=== PATIENT | female | born 1980 | race Caucasian/White ===

== ENCOUNTER 2017-01-02 11:32 | Emergency (ER) | payer SELFPAY ==
[2017-01-02 11:37] VITALS: BP 125/65; PULSE 85; TEMP 98.7; BMI 25.8
--- NOTE | 2017-01-02 12:04 | PDOC ---
History of Present Illness - General Chief Complaint: Sore Throat Stated Complaint: SORE THROAT Time Seen by Provider: 01/02/17 11:54 History Source: Patient Exam Limitations: No Limitations - History of Present Illness Initial Comments: 01/02/17 12:03 36 yr female with c/o sore throat for 4 days. Pt states 2 weeks ago had same symptoms took 4 days of amoxicillin. Past History - Past Medical History Allergies/Adverse Reactions: Allergies Allergy/AdvReac Type Severity Reaction Status Date / Time No Known Allergies Allergy Verified 01/02/17 11:37 Home Medications: Ambulatory Orders Penicillin V Potassium [Pen Vee K -] 500 mg PO BID #20 tablet 01/02/17 Other medical history: NONE - Reproductive History (#): 3 Para: 2 - Suicide/Smoking/Psychosocial Hx Smoking History: Never smoked Have you smoked in the past 12 months: No Hx Alcohol Use: No Drug/Substance Use Hx: No Substance Use Type: None *Physical Exam - Vital Signs Last Vital Signs Temp Pulse Resp BP Pulse Ox 98.7 F 85 20 125/65 98 01/02/17 11:34 01/02/17 11:34 01/02/17 11:34 01/02/17 11:34 01/02/17 11:34 - Physical Exam General Appearance: Yes: Nourished, Appropriately Dressed HEENT: positive: EOMI, SAWYER, Normal ENT Inspection, TMs Normal, Pharynx Normal, Pharyngeal Erythema, Tonsillar Erythema Neck: positive: Supple, Lymphadenopathy (L) Respiratory/Chest: positive: Lungs Clear, Normal Breath Sounds Medical Decision Making - Medical Decision Making 01/02/17 17:51 cc: sore throat and low grade fever will check rapid strep pt non toxic speaking clearly no evidence of [employer]ADER no drooling *DC/Admit/Observation/Transfer Diagnosis at time of Disposition: Strep pharyngitis - Discharge Dispostion Disposition: HOME Condition at time of disposition: Good - Prescriptions Prescriptions: Penicillin V Potassium [Pen Vee K -] 500 mg PO BID #20 tablet - Referrals Referrals: Fabian Sal MD [Primary Care Provider] - - Patient Instructions Additional Instructions: gargle with warm salt water 4-5 times a day take the medication as prescribed finish all the antibiotics take advil 600mg every 6hrs for pain or fever avoid close contacts, strep is spread through saliva
== END 2017-01-02 12:32 | disposition home or self-care (01) ==
LOC: JERFT 11:32
DX: J02.0 Streptococcal pharyngitis (principal)
CPT/HCPCS: 87070; 87077; 87430; 99281-25

== ENCOUNTER 2018-04-11 23:42 | Emergency (ER) | payer OTHER ==
[2018-04-12 00:01] VITALS: BP 125/78; PULSE 85; TEMP 98.6; BMI 28.2
--- NOTE | 2018-04-12 01:23 | PDOC ---
History of Present Illness - General Chief Complaint: Toothache Stated Complaint: TOOTHACHE Time Seen by Provider: 04/12/18 01:21 History Source: Patient Exam Limitations: No Limitations - History of Present Illness Initial Comments: 04/12/18 02:26 Best Contact: s PCP:None Pmhx:0 Pshx:0 Allergies:NKDA FH:0 Social Hx: Cigarettes/ 0 Alcohol/ 0 Drugs/0 LMP: 03/19/2017 37-year-old female presents to the ER complaining of a cracked left lower wisdom tooth 3 weeks ago. Patient states she was seen by her dentist on March 19 and was given amoxicillin 500 mg 1 tab by mouth 3 times a day. Patient states she took 2 days with antibiotics and felt nauseous therefore she stopped. Patient states she was taken Tylenol alternating with Motrin with some relief until last evening when the pain persists to 8/10 throbbing nonradiating intermittent discomfort which is exacerbated with cold fluids. Patient states she has an appointment for left lower wisdom extraction on May 04. Patient denies fever, chills, nausea/vomiting, facial pain/swelling, sore throat, difficulty swallowing. Past History - Past Medical History Allergies/Adverse Reactions: Allergies Allergy/AdvReac Type Severity Reaction Status Date / Time No Known Allergies Allergy Verified 04/12/18 01:27 Home Medications: Ambulatory Orders Penicillin V Potassium [Pen Vee K -] 500 mg PO BID #20 tablet 01/02/17 Clindamycin [Cleocin -] 300 mg PO TID #21 capsule 04/12/18 Hydrocodone/Acetaminophen [Vicodin 5-300 mg Tablet] 1 each PO TID #12 tablet MDD 4 04/12/18 COPD: No - Reproductive History (#): 3 Para: 2 - Suicide/Smoking/Psychosocial Hx Smoking History: Never smoked Have you smoked in the past 12 months: No Information on smoking cessation initiated: No Hx Alcohol Use: No Drug/Substance Use Hx: No Substance Use Type: None Review of Systems - Review of Systems Able to Perform ROS?: Yes Comments:: 04/12/18 02:25 CONSTITUTIONAL: Absent: fever, chills, diaphoresis, generalized weakness, malaise, loss of appetite HEENT: Absent: rhinorrhea, nasal congestion, throat pain, throat swelling, difficulty swallowing, mouth swelling, ear pain, eye pain, visual Changes Left lower wisdom toothache/cracked Is the patient limited Macedonian proficient: No *Physical Exam - Vital Signs Last Vital Signs Temp Pulse Resp BP Pulse Ox 98.6 F 85 20 125/78 97 04/11/18 23:53 04/11/18 23:53 04/11/18 23:53 04/11/18 23:53 04/11/18 23:53 - Physical Exam Comments: 04/12/18 02:25 GENERAL: Well developed, well nourished. Awake and alert. No acute distress. HEENT: Normocephalic, atraumatic. PERRLA, EOMI. No conjunctival pallor. Sclera are non- icteric. Moist mucous membranes. Oropharynx is clear. Left wisdom tooth pain on percussion +cracked tooth neg swelling Neg trismus Moderate Sedation - Procedure Monitoring Vital Signs: Procedure Monitoring Vital Signs Temperature 98.6 F 04/11/18 23:53 Pulse Rate 85 04/11/18 23:53 Respiratory Rate 20 04/11/18 23:53 Blood Pressure 125/78 04/11/18 23:53 O2 Sat by Pulse Oximetry (%) 97 04/11/18 23:53 *DC/Admit/Observation/Transfer Diagnosis at time of Disposition: Toothache - Discharge Dispostion Disposition: HOME Condition at time of disposition: Stable Decision to Admit order: No - Prescriptions Prescriptions: Clindamycin [Cleocin -] 300 mg PO TID #21 capsule Hydrocodone/Acetaminophen [Vicodin 5-300 mg Tablet] 1 each PO TID #12 tablet MDD 4 - Referrals Referrals: Sherry Salcedo [Primary Care Provider] - - Patient Instructions Printed Discharge Instructions: DI for Tooth Decay Additional Instructions: Follow up with the dentist [facility] [phone] [place]: [phone] Saturday through Saturday: 4 PM to 9 PM Saturday and Saturday 9 AM to 5 PM Tylenol alternating with Motrin as needed for mild pain Take antibiotics: Clindamycin as prescribed - Post Discharge Activity
== END 2018-04-12 01:34 | disposition home or self-care (01) ==
LOC: JER 23:42
DX: K08.89 Other specified disorders of teeth and supporting structures (principal)
CPT/HCPCS: 99282-25

== ENCOUNTER 2021-03-09 15:35 | Emergency (ER) | payer BC, OTHER ==
[2021-03-09 15:58] VITALS: BP 121/80; PULSE 90; TEMP 97.3; BMI 29.9
[2021-03-10 16:11] LABS: SARS-CoV-2 NAA Not Detected (Not Detected)
== END 2021-03-09 18:11 | disposition home or self-care (01) ==
LOC: JER 15:35
DX: B34.9 Viral infection, unspecified (principal)
CPT/HCPCS: 87804; 99283-25; C9803; U0003; U0005

== ENCOUNTER 2023-11-05 14:25 | Emergency (ER) | payer BC, OTHER ==
[2023-11-05 14:36] VITALS: BP 141/96; PULSE 73; RESP 18; TEMP 98.8; BMI 28.3
[2023-11-05] MEDS ORDERED: ACETAMINOPHEN INJECTION 100 ML ONE (15:42)
[2023-11-05] MEDS ORDERED: FAMOTIDINE 20 MG/50 ML IVPB 20 MG/50 ML MG IVPB ONE (15:43)
[2023-11-05] MEDS ORDERED: MAG HYDROX/AL HYDROX/SIMETH 30 ML UNIT-DOSE CUP ONE (15:43)
[2023-11-05] MEDS: FAMOTIDINE 20 MG/50 ML IVPB 20 MG/50 ML MG IVPB ONE (15:56)
[2023-11-05] MEDS: ACETAMINOPHEN 1000 MG/100 ML BAG IVPB ONE (15:56)
[2023-11-05] MEDS: LACTATED RINGERS SOLUTION 1000 ML INFUS.BAG IV ONE (15:57)
[2023-11-05] MEDS: MAG HYDROX/AL HYDROX/SIMETH 30 ML UNIT-DOSE CUP PO ONE (15:57)
[2023-11-05 16:00] LABS: BASO % 0.3 % (0-2.0); EOS % 1.6 % (0-4.5); HEMATOCRIT 36.4 % (32.4-45.2); HEMOGLOBIN 12.6 GM/dL (10.7-15.3); LYMPH % 18.1 % (8-40); MCH 33.5 pg (25.7-33.7); MCHC 34.7 g/dl (32.0-36.0); MEAN CELL VOLUME 96.7 fl (80-96); MEAN PLT VOLUME 8.5 fl (7.5-11.1); MONO % 5.2 % (3.8-10.2); NEUT % 74.8 % (42.8-82.8); PLATELET COUNT 283 10^3/uL (134-434); RBC 3.77 M/mm3 (3.60-5.2); RDW 13.1 % (11.6-15.6); WHITE BLOOD COUNT 7.9 K/mm3 (4.0-10.0)
[2023-11-05 16:44] LABS: POTASSIUM 4.1 mmol/L (3.5-5.1)
[2023-11-05 16:46] LABS: CALCIUM 9.1 mg/dL (8.5-10.1)
[2023-11-05 16:47] LABS: BLOOD UREA NITROGEN 12.9 mg/dL (7-18); MAGNESIUM 2.4 mg/dL (1.8-2.4)
[2023-11-05 16:50] LABS: CREATININE 0.8 mg/dL (0.55-1.3)
[2023-11-05 16:51] LABS: BILIRUBIN,TOTAL 0.4 mg/dL (0.2-1)
[2023-11-05 17:05] LABS: ACTIVATED PTT 31.7 SECONDS (25.2-36.5); INR 0.96 (0.83-1.09); PROTHROMBIN TIME (PATIENT) 11.1 SEC (9.7-13.0)
== END 2023-11-05 18:24 | disposition home or self-care (01) ==
LOC: JER 14:25
PROC: 3E033GC Introduction of Other Therapeutic Substance into Peripheral Vein, Percutaneous Approach (ICD-10-PCS; principal; 2023-11-05)
PROC: 3E033NZ Introduction of Analgesics, Hypnotics, Sedatives into Peripheral Vein, Percutaneous Approach (ICD-10-PCS; 2023-11-05)
DX: R07.89 Other chest pain (principal); R10.13 Epigastric pain
CPT/HCPCS: 36415; 71045-TC-FY; 80053; 83690; 83735; 84484; 84703; 85025; 85610; 85730; 93005; 93010; 96365; 96375; 99285-25; J0131